=== PATIENT | male | born 1940 | race Caucasian/White ===

== ENCOUNTER 2017-08-02 09:34 | Inpatient (IN) | payer MEDICARE, BC ==
[2017-08-01 11:28] LABS: BILIRUBIN,URINE NEGATIVE (NEGATIVE); KETONES,URINE NEGATIVE (NEGATIVE); LEUKOCYTE ESTERASE ,URINE NEGATIVE (NEGATIVE); NITRITE,URINE NEGATIVE (NEGATIVE); URINE UROBILINOGEN 0.2 mg/dL (0.2 - 1)
[2017-08-01 11:28] LABS: BASOPHILS # (AUTO) 0.1 (0.0-0.1); BASOPHILS % 0.5 % (0.0-1.0); EOSINOPHILS # (AUTO) 0.1 (0.0-0.4); EOSINOPHILS % 1.5 % (0.0-6.0); HEMATOCRIT 38.1 % (38.2-49.6); HEMOGLOBIN 13.3 g/dL (14.0-18.0); LYMPHOCYTES # (AUTO) 1.2 (1.0-3.2); LYMPHOCYTES % 12.5 % (18.0-39.1); MEAN CORPUSCULAR HEMOGLOBIN 30.4 pg (28-32); MEAN CORPUSCULAR HGB CONC 34.9 g/dL (31-35); MEAN CORPUSCULAR VOLUME 87.2 fL (81-99); MONOCYTES # (AUTO) 0.5 (0.2-0.8); MONOCYTES % 4.8 % (4.4-11.3); NEUTROPHILS # (AUTO) 7.5 (2.1-6.9); NEUTROPHILS % 80.2 % (38.7-80.0); PLATELET COUNT 198 x10e3/uL (140-360); RED BLOOD COUNT 4.37 x10e6/uL (4.3-5.7); RED CELL DISTRIBUTION WIDTH 12.6 % (11.7-14.4)
[2017-08-01 11:30] LABS: CLARITY,URINE SL CLOUDY (CLEAR); COLOR,URINE YELLOW (YELLOW); PROTEIN,URINE DIPSTICK 2+ (NEGATIVE)
[2017-08-01 11:48] LABS: ANION GAP 15.4 mmol/L (8-16); CALCIUM 9.7 mg/dL (8.4-10.2); CREATININE, SERUM 1.75 mg/dL (0.72-1.25); POTASSIUM 4.4 mmol/L (3.5-5.1)
--- NOTE | 2017-08-01 18:16 | Diagnostic Imaging Report ---
PROCEDURE: X-RAY CHEST, TWO VIEWS COMPARISON: Chest x-ray 03/09/16. INDICATIONS: PRE OPERATIVE CHEST X-RAY FOR KNEE REPLACEMENT FINDINGS: LUNGS: The lungs are slightly lower compared to previous exam. There is minimal atelectasis of the right lung base. No soft tissue mass or infiltrate. Calcified granuloma in the left upper lobe is stable. PLEURA: No effusions or pneumothorax. HEART \T\ MEDIASTINUM: The heart is within normal size-limits. Coronary artery stents are stable. BONES \T\ SOFT TISSUES: Median sternotomy is well-healed. Degenerative changes of the spine are stable. No focal osseous lesions. Cholecystectomy clips are stable. CONCLUSION: Slightly lower lung volumes. No acute cardiopulmonary process. Dictated by: Haritha Hong M.D. on 08/01/2017 at 18:16 Electronically approved by: Haritha Hong M.D. on 08/01/2017 at 18:16
[~2017-08-02] VITALS: Ht 177.8 cm; Wt 97.5 kg
[~2017-08-02 09:34] MED LIST: ASPIR 8181 MG PO; ATORVASTATIN CA40 MG PO; BENAZEPRIL HCL10 MG PO; BUPROPION XL150 MG PO; CLOPIDOGREL75 MG PO; GLIMEPIRIDE4 MG PO; IRON PO; LEVEMIR100 UNIT/1 SQ; LEVOTHYROXINE75 MCG PO; LORAZEPAM1 MG PO; METOPROLOL TART50 MG PO; MULTI-VITAMIN1 EACH PO; NITROGLYCERIN PO; NITROQUICK SL; NOVOLOG MI100 UNITS/ SQ; OMEGA 3 FISH O1 EACH PO; OMEPRAZOLE20 MG PO; PEPCID AC20 MG PO; TAMSULOSIN HCL0.4 MG PO; TRILIPIX45 MG PO; VICTOZA 2-0.6 MG/0.1 SQ; VITAMIN C500 MG PO; VITAMIN D1000 UNI1 PO; ZETIA10 MG PO
--- OUTSIDE RECORDS SUMMARY | 2017-08-02 09:37 | XMS REPORT ---
Author Author [facility] Address Unknown Phone Unavailable Care Team Providers Care Patient Sitter Name Role Phone LAMBERT ORR Unavailable Unavailable Problems This patient has no known problems. Allergies, Adverse Reactions, Alerts This patient has no known allergies or adverse reactions. Medications This patient has no known medications. Results Test Description Test Time Test Comments Text Results Atomic Results Result Comments CHEST 2 VIEWS [place] [address] Patient Name: SIMONE FUNES MR #: [id number] : 1940 Age/Sex: 77/M Req #: [id number] Adm Physician: Ordered by: LAMBERT ORR MD Report #: [id number] Location: OR Room/Bed: Procedure: [id number] DX/CHEST 2 VIEWS Exam Date: 08/01/17 Exam Time: 1120 REPORT STATUS: Signed PROCEDURE: X-RAY CHEST, TWO VIEWS COMPARISON: Chest x-ray 03/09/16. INDICATIONS: PRE OPERATIVE CHEST X-RAY FOR KNEE REPLACEMENT FINDINGS: LUNGS: The lungs are slightly lower compared to previous exam. There is minimal atelectasis of the right lung base. No soft tissue mass or infiltrate. Calcified granuloma in the left upper lobe is stable. PLEURA: No effusions or pneumothorax. HEART T MEDIASTINUM: The heart is within normal size-limits. Coronary artery stents are stable. BONES T SOFT TISSUES: Median sternotomy is well-healed. Degenerative changes of the spine are stable. No focal osseous lesions. Cholecystectomy clips are stable. CONCLUSION: Slightly lower lung volumes. No acute cardiopulmonary process. Dictated by: Celena Hong M.D. on 08/01/2017 at 18:16 Electronically approved by: Celena Hong M.D. on 08/01/2017 at 18:16 Dictated By: CELENA HONG MD 15 Transcribed By: MARE on 08/01/171815 COPY TO: LAMBERT ORR MD
[2017-08-02] MEDS ORDERED: CEFAZOLIN SOD 2 GM/D5W 50ML 50 ML IV ONE (10:36)
[2017-08-02 11:11] LABS: INR 1.1; PROTHROMBIN TIME 13.4 seconds (11.9-14.5)
[2017-08-02 11:54] LABS: INR 1.09; PROTHROMBIN TIME 13.3 seconds (11.9-14.5)
[2017-08-02 11:58] LABS: PARTIAL THROMBOPLASTIN TIME 30.6 seconds (23.8-35.5)
[2017-08-02] MEDS ORDERED: BACITRACIN 50,000 UNIT VIAL ONE (13:21)
[2017-08-02] MEDS ORDERED: NALOXONE HCL INJ 0.4 MG/ML AMP IV PRN (15:30)
[2017-08-02] MEDS ORDERED: FENTANYL CITRATE/PF 100MCG/2 ML INJ ONE ×2 (15:54→17:51)
[2017-08-02] MEDS ORDERED: HYDROMORPHONE 0.2MG/ML-SOD CHL 30ML PCA SYRINGE IV ONE (16:11)
--- NOTE | 2017-08-02 16:35 | Diagnostic Imaging Report ---
PROCEDURE: X-RAY RIGHT KNEE, ONE OR TWO VIEWS COMPARISON: None. INDICATIONS:s/p knee replacement FINDINGS: See conclusion. CONCLUSION: Status post total right knee replacement with surrounding soft tissue swelling, soft tissue air and sreedhar consistent with recent surgery. No acute fractures. Hardware is intact and show satisfactory alignment. Vascular calcifications. Jay Santos M.D. Dictated by: Jay Santos M.D. on 08/02/2017 at 16:35 Electronically approved by: Jay Santos M.D. on 08/02/2017 at 16:35
[2017-08-02 17:06] VITALS: BP 131/68
[2017-08-02 17:17] VITALS: BP 131/61
[2017-08-02] MEDS ORDERED: NITROQUICK SL SCH (17:45)
[2017-08-02] MEDS ORDERED: MIDAZOLAM HCL 2 MG/2 ML VIAL ONE (17:51)
[2017-08-02] MEDS ORDERED: NITROGLYCERIN 0.4 MG SUBL SL PRN (18:15)
[2017-08-02] MEDS: ONDANSETRON HCL INJ 2 MG/ML VIAL IV PRN (18:23)
[2017-08-02] MEDS: SODIUM CHLORIDE 0.9% 1000ML 1,000 ML IV SCH (18:23)
[2017-08-02] MEDS ORDERED: LIDOCAINE HCL 2% LOCAL INJ 5 ML SDV VIAL INJ ONE (18:25)
[2017-08-02] MEDS ORDERED: DEXAMETHASONE SOD PHOS INJ 4 MG/ML VIAL ONE (18:25)
[2017-08-02] MEDS ORDERED: ACETAMINOPHEN 1000 MG/100 ML IV ONE (18:25)
[2017-08-02] MEDS ORDERED: PROPOFOL IV EMULSION 10 MG/ML 20 ML VIAL ONE (18:25)
[2017-08-02] MEDS ORDERED: SEVOFLURANE INHAL SOLN 250 ML PEN BTL ONE (18:25)
[2017-08-02] MEDS: ACETAMINOPHEN 1000 MG/100 ML IV SCH (18:25)
[2017-08-02] MEDS ORDERED: ONDANSETRON HCL INJ 2 MG/ML VIAL ONE (18:25)
[2017-08-02] MEDS ORDERED: ROPIVACAINE 0.5% 5 MG/ML 30 ML SDV ONE (18:40)
[2017-08-02 20:00] VITALS: BP 152/66
[2017-08-02] MEDS: INSULIN DETEMIR 100 UNIT/ML PEN SQ SCH (22:00)
[2017-08-02] MEDS ORDERED: CEFAZOLIN SOD 1 GM/NS 50ML 50 ML IV SCH (22:00)
[2017-08-02] MEDS: CEFAZOLIN SOD 1 GM VIAL IV SCH (22:04)
[2017-08-02] MEDS: INSULIN ASPART 70/30 100 UNITS/ML VIAL SC SCH (23:00)
[2017-08-03] VITALS (10 sets, daily range): BP systolic 126–147; BP diastolic 60–68
[2017-08-03] MEDS: ACETAMINOPHEN 1000 MG/100 ML IV SCH ×3 (00:33→11:32)
[2017-08-03] MEDS: DIPHENHYDRAMINE HCL INJ 50 MG/ML VIAL IM/IV PRN (02:15)
[2017-08-03] MEDS: SODIUM CHLORIDE 0.9% 1000ML 1,000 ML IV SCH ×3 (02:46→21:30)
[2017-08-03] MEDS: CEFAZOLIN SOD 1 GM VIAL IV SCH ×2 (05:59→14:02)
[2017-08-03] MEDS: LEVOTHYROXINE SODIUM 75 MCG TAB PO SCH (06:00)
[2017-08-03 06:51] LABS: HEMOGLOBIN 9.3 g/dL (14.0-18.0)
[2017-08-03] MEDS ORDERED: GLIMEPIRIDE 2 MG TAB PO SCH (07:30)
[2017-08-03] MEDS: HYDROMORPHONE 0.2MG/ML-SOD CHL 30ML PCA SYRINGE IV PRN (08:00)
--- NOTE | 2017-08-03 08:53 | Operative Report ---
DATE OF PROCEDURE: August 02, 2017 PREOPERATIVE DIAGNOSIS: Right knee end-stage arthritis. POSTOPERATIVE DIAGNOSIS: Right knee end-stage arthritis. PROCEDURE PERFORMED: Patient underwent a right total knee arthroplasty using the [employer] Nex[employer] knee system with a size G femoral component, a size 8 tibial component, a 17 mm tibial insert, and a 38 mm patellar button. MORTGAGE LOAN UNDERWRITER: None. ANESTHESIA: General endotracheal intubation anesthesia. IV FLUIDS: Per the anesthesia record. DESCRIPTION OF PROCEDURE: Mr. Whitney was taken to the operating room and placed in the supine position on the operating table. Following induction of general anesthesia as well as endotracheal intubation, the patient's right lower extremity was examined under anesthesia. He was found to have a mild effusion within the knee joint. The patient's knee was ligamentously stable. The patient's lower extremity was prepped and draped in standard surgical fashion. The case was begun by creating an incision along the anterior surface of the knee. This incision was carried through the skin and subcutaneous tissues to the level of the extensor mechanism. The extensor mechanism was then incised along the medial border of the tendon and patella to the level of the tibial tubercle. The patella was everted, and the fat pad was resected. Osteophytes were removed from the femoral and tibial bone surfaces as well as from the periphery of the patella. The patella was then sized for later reaming. The knee was placed in flexion, and the anterior horns of the medial and lateral meniscus were resected. The anterior and posterior cruciate ligaments were also resected at this time. The 5-in-1 cutting block was then affixed to the femur, and the femoral cuts were performed. The intercondylar notch cutting block was affixed to the femur, and the intercondylar cut was performed. The finishing block was placed in the femur, and the posterior chamfer cut was completed. Attention was then turned to the tibia. The external tibial alignment guide was affixed to the tibia and adjusted appropriately. The tibial cut was performed. The keel cutting device was then affixed to the proximal tibia, and the keel cut was performed. Trial femoral and tibial components were inserted in the knee joint, and the soft tissues were balanced. A 17 mm tibial insert was placed within the tibial tray, and the knee was reduced and placed through motion and found to be stable. The patella was then reamed, and a trial patellar button was affixed to the undersurface of the patella. The patellofemoral joint was placed through motion and found to be stable. The trial components were removed. Cement was mixed on the back table. The femoral, tibial and patellar implants were cemented into place. The tourniquet was deflated, and hemostasis was obtained. The wound was copiously irrigated. The quadriceps tendon was repaired with nonabsorbable sutures. The remaining soft tissues were closed in a multilayer fashion Sterile dressings were applied. The patient was then awakened and taken to the postanesthesia care unit in stable condition. Job#: [id number]
[2017-08-03] MEDS: FENOFIBRATE 48 MG TAB PO SCH (09:00)
[2017-08-03] MEDS ORDERED: NON-FORMULARY MEDICATION (Atorvastatin Calcium 40 MG) PO SCH (09:00)
[2017-08-03] MEDS: METOPROLOL TARTRATE 50 MG TAB PO SCH (09:00)
[2017-08-03] MEDS ORDERED: NON-FORMULARY MEDICATION (Glimepiride 4 MG) PO SCH (09:00)
[2017-08-03] MEDS: INSULIN ASPART 70/30 100 UNITS/ML VIAL SC SCH ×2 (09:00→17:00)
[2017-08-03] MEDS ORDERED: INSULIN ASPART 70/30 100 UNITS/ML VIAL SC SCH (09:00)
[2017-08-03] MEDS ORDERED: TAMSULOSIN HCL 0.4 MG CAP PO SCH (09:00)
[2017-08-03] MEDS: NITROGLYCERIN 6.5 MG PO SCH ×2 (09:00→17:24)
[2017-08-03] MEDS: LIRAGLUTIDE 1.2 MG SQ SCH (09:00)
[2017-08-03] MEDS: BENAZEPRIL HCL 10 MG TAB PO SCH (09:00)
[2017-08-03] MEDS ORDERED: INSULIN DETEMIR 100 UNIT/ML PEN SQ SCH (09:00)
[2017-08-03] MEDS ORDERED: ASPIRIN 81 MG CHEW TAB PO SCH (09:00)
[2017-08-03] MEDS: IRON 27 MG PO SCH (09:00)
[2017-08-03] MEDS ORDERED: FENOFIBRIC ACID 45 MG PO SCH (09:00)
[2017-08-03] MEDS: CLOPIDOGREL BISULFATE 75 MG TAB PO SCH (09:00)
[2017-08-03] MEDS: FAMOTIDINE 20 MG TAB PO SCH (09:00)
[2017-08-03] MEDS: CHOLECALCIFEROL 1,000 UNIT TAB PO SCH ×2 (09:00→17:24)
[2017-08-03] MEDS: ASCORBIC ACID 500 MG TAB PO SCH (09:00)
[2017-08-03] MEDS ORDERED: INSULIN DETEMIR 80 UNIT SQ SCH (09:00)
[2017-08-03] MEDS: OMEGA 3 POLYUNSAT FATTY ACIDS 1000 MG SOFTGEL PO SCH ×2 (09:00→17:24)
[2017-08-03] MEDS: EZETIMIBE 10 MG TAB PO SCH (09:00)
[2017-08-03] MEDS ORDERED: NON-FORMULARY MEDICATION (Ascorbic Acid (Vitamin C) 500 MG) PO SCH (09:00)
[2017-08-03] MEDS: GLIMEPIRIDE 2 MG TAB PO SCH ×2 (09:40→16:27)
[2017-08-03] MEDS: RIVAROXABAN 10 MG TABLET PO SCH (17:24)
[2017-08-03] MEDS ORDERED: KETOROLAC TROMETHAMINE 10 MG TAB PO PRN (18:15)
[2017-08-03] MEDS ORDERED: KETOROLAC TROMETHAMINE 30 MG/ML VIAL IV ONE (18:35)
[2017-08-03] MEDS: ASPIRIN 81 MG CHEW TAB PO SCH (21:00)
[2017-08-03] MEDS: ATORVASTATIN 40 MG TAB PO SCH (21:00)
[2017-08-03] MEDS: TAMSULOSIN HCL 0.4 MG CAP PO SCH (21:00)
[2017-08-03] MEDS: INSULIN DETEMIR 100 UNIT/ML PEN SQ SCH (21:00)
[2017-08-04] VITALS (8 sets, daily range): BP systolic 137–179; BP diastolic 63–76
[2017-08-04] MEDS: HYDROMORPHONE 0.2MG/ML-SOD CHL 30ML PCA SYRINGE IV PRN (04:38)
[2017-08-04] MEDS: LEVOTHYROXINE SODIUM 75 MCG TAB PO SCH (06:20)
[2017-08-04 06:54] LABS: HEMATOCRIT 24.9 % (38.2-49.6); HEMOGLOBIN 8.7 g/dL (14.0-18.0)
[2017-08-04] MEDS: LORAZEPAM 1 MG TAB PO PRN (07:20)
[2017-08-04] MEDS: SODIUM CHLORIDE 0.9% 1000ML 1,000 ML IV SCH ×2 (07:39→16:51)
[2017-08-04] MEDS: FAMOTIDINE 20 MG TAB PO SCH (08:59)
[2017-08-04] MEDS: LIRAGLUTIDE 1.2 MG SQ SCH (08:59)
[2017-08-04] MEDS: FENOFIBRATE 48 MG TAB PO SCH (08:59)
[2017-08-04] MEDS: METOPROLOL TARTRATE 50 MG TAB PO SCH (08:59)
[2017-08-04] MEDS: CLOPIDOGREL BISULFATE 75 MG TAB PO SCH (08:59)
[2017-08-04] MEDS: OMEGA 3 POLYUNSAT FATTY ACIDS 1000 MG SOFTGEL PO SCH ×2 (08:59→17:29)
[2017-08-04] MEDS: EZETIMIBE 10 MG TAB PO SCH (08:59)
[2017-08-04] MEDS: BENAZEPRIL HCL 10 MG TAB PO SCH (08:59)
[2017-08-04] MEDS: ASCORBIC ACID 500 MG TAB PO SCH (08:59)
[2017-08-04] MEDS: CHOLECALCIFEROL 1,000 UNIT TAB PO SCH ×2 (08:59→17:29)
[2017-08-04] MEDS: NITROGLYCERIN 6.5 MG PO SCH ×2 (09:00→17:29)
[2017-08-04] MEDS: IRON 27 MG PO SCH (09:00)
[2017-08-04] MEDS: INSULIN ASPART 70/30 100 UNITS/ML VIAL SC SCH ×2 (09:00→17:45)
[2017-08-04] MEDS: GLIMEPIRIDE 2 MG TAB PO SCH ×2 (09:00→17:29)
[2017-08-04] MEDS ORDERED: HYDROCODONE/APAP 7.5MG-325MG 1 EA TAB PO PRN (11:45)
[2017-08-04] MEDS: DIPHENHYDRAMINE HCL INJ 50 MG/ML VIAL IM/IV PRN (12:19)
[2017-08-04] MEDS: HYDROCODONE/APAP 5MG-325MG TAB PO PRN ×3 (15:17→22:43)
[2017-08-04] MEDS: RIVAROXABAN 10 MG TABLET PO SCH (17:29)
[2017-08-04] MEDS: ASPIRIN 81 MG CHEW TAB PO SCH (20:53)
[2017-08-04] MEDS: TAMSULOSIN HCL 0.4 MG CAP PO SCH (20:53)
[2017-08-04] MEDS: ATORVASTATIN 40 MG TAB PO SCH (20:53)
[2017-08-04] MEDS: INSULIN DETEMIR 100 UNIT/ML PEN SQ SCH (21:53)
[2017-08-05 04:33] VITALS: BP 132/61
[2017-08-05] MEDS: LEVOTHYROXINE SODIUM 75 MCG TAB PO SCH (05:20)
[2017-08-05] MEDS: HYDROCODONE/APAP 5MG-325MG TAB PO PRN ×4 (05:20→21:05)
[2017-08-05 06:40] LABS: HEMATOCRIT 23.4 % (38.2-49.6)
[2017-08-05 08:56] VITALS: BP 164/71
[2017-08-05] MEDS: FAMOTIDINE 20 MG TAB PO SCH (09:00)
[2017-08-05] MEDS: CHOLECALCIFEROL 1,000 UNIT TAB PO SCH ×2 (09:00→17:00)
[2017-08-05] MEDS: METOPROLOL TARTRATE 50 MG TAB PO SCH (09:00)
[2017-08-05] MEDS: LIRAGLUTIDE 1.2 MG SQ SCH (09:00)
[2017-08-05] MEDS: FENOFIBRATE 48 MG TAB PO SCH (09:00)
[2017-08-05] MEDS: CLOPIDOGREL BISULFATE 75 MG TAB PO SCH (09:00)
[2017-08-05] MEDS: NITROGLYCERIN 6.5 MG PO SCH ×2 (09:00→17:00)
[2017-08-05] MEDS: OMEGA 3 POLYUNSAT FATTY ACIDS 1000 MG SOFTGEL PO SCH ×2 (09:00→17:00)
[2017-08-05] MEDS: EZETIMIBE 10 MG TAB PO SCH (09:00)
[2017-08-05] MEDS: ASCORBIC ACID 500 MG TAB PO SCH (09:00)
[2017-08-05] MEDS: IRON 27 MG PO SCH (09:00)
[2017-08-05] MEDS: BENAZEPRIL HCL 10 MG TAB PO SCH (09:00)
[2017-08-05 09:43] LABS: BASOPHILS % 0.3 % (0.0-1.0); EOSINOPHILS # (AUTO) 0.3 (0.0-0.4); EOSINOPHILS % 2.7 % (0.0-6.0); HEMATOCRIT 23.6 % (38.2-49.6); LYMPHOCYTES # (AUTO) 1.5 (1.0-3.2); LYMPHOCYTES % 15.2 % (18.0-39.1); MEAN CORPUSCULAR HGB CONC 33.9 g/dL (31-35); MEAN CORPUSCULAR VOLUME 88.4 fL (81-99); MONOCYTES # (AUTO) 0.9 (0.2-0.8); NEUTROPHILS # (AUTO) 6.9 (2.1-6.9); NEUTROPHILS % 72.2 % (38.7-80.0); PLATELET COUNT 137 x10e3/uL (140-360); RED BLOOD COUNT 2.67 x10e6/uL (4.3-5.7); RED CELL DISTRIBUTION WIDTH 13.2 % (11.7-14.4)
[2017-08-05] MEDS: SERTRALINE HCL 50 MG TAB PO SCH (09:45)
[2017-08-05] MEDS: ONDANSETRON HCL INJ 2 MG/ML VIAL IV PRN (09:47)
[2017-08-05] MEDS: LORAZEPAM 1 MG TAB PO PRN (09:47)
[2017-08-05 09:54] LABS: ALBUMIN 2.8 g/dL (3.5-5.0); ALBUMIN/GLOBULIN RATIO 0.9 (0.8-2.0); ANION GAP 11.2 mmol/L (8-16); CALCIUM 9.2 mg/dL (8.4-10.2); CREATININE, SERUM 1.77 mg/dL (0.72-1.25); POTASSIUM 4.2 mmol/L (3.5-5.1)
[2017-08-05 11:58] VITALS: BP 160/67
[2017-08-05 16:00] VITALS: BP 157/72
[2017-08-05] MEDS: RIVAROXABAN 10 MG TABLET PO SCH (17:00)
[2017-08-05 19:45] VITALS: BP 163/72
[2017-08-05] MEDS: ATORVASTATIN 40 MG TAB PO SCH (21:15)
[2017-08-05] MEDS: ASPIRIN 81 MG CHEW TAB PO SCH (21:15)
[2017-08-05] MEDS: TAMSULOSIN HCL 0.4 MG CAP PO SCH (21:15)
[2017-08-05] MEDS: INSULIN DETEMIR 100 UNIT/ML PEN SQ SCH (21:30)
[2017-08-05 23:10] VITALS: BP 148/65
[2017-08-06] VITALS (7 sets, daily range): BP systolic 133–166; BP diastolic 60–77
[2017-08-06 07:07] LABS: ALBUMIN 2.7 g/dL (3.5-5.0); ALBUMIN/GLOBULIN RATIO 0.8 (0.8-2.0); ANION GAP 12.3 mmol/L (8-16); CALCIUM 9.5 mg/dL (8.4-10.2); CREATININE, SERUM 1.6 mg/dL (0.72-1.25); POTASSIUM 4.3 mmol/L (3.5-5.1)
[2017-08-06] MEDS: LEVOTHYROXINE SODIUM 75 MCG TAB PO SCH (07:27)
[2017-08-06] MEDS: HYDROCODONE/APAP 5MG-325MG TAB PO PRN ×4 (08:10→23:25)
[2017-08-06] MEDS: BENAZEPRIL HCL 10 MG TAB PO SCH (09:00)
[2017-08-06] MEDS: IRON 27 MG PO SCH (09:00)
[2017-08-06] MEDS: ASCORBIC ACID 500 MG TAB PO SCH (09:00)
[2017-08-06] MEDS: OMEGA 3 POLYUNSAT FATTY ACIDS 1000 MG SOFTGEL PO SCH ×2 (09:00→16:34)
[2017-08-06] MEDS: METOPROLOL TARTRATE 50 MG TAB PO SCH (09:00)
[2017-08-06] MEDS: CLOPIDOGREL BISULFATE 75 MG TAB PO SCH (09:00)
[2017-08-06] MEDS: SERTRALINE HCL 50 MG TAB PO SCH (09:00)
[2017-08-06] MEDS: NITROGLYCERIN 6.5 MG PO SCH ×2 (09:00→16:34)
[2017-08-06] MEDS: EZETIMIBE 10 MG TAB PO SCH (09:00)
[2017-08-06] MEDS: CHOLECALCIFEROL 1,000 UNIT TAB PO SCH ×2 (09:00→16:34)
[2017-08-06] MEDS: LIRAGLUTIDE 1.2 MG SQ SCH (09:00)
[2017-08-06] MEDS: FENOFIBRATE 48 MG TAB PO SCH (09:00)
[2017-08-06] MEDS: FAMOTIDINE 20 MG TAB PO SCH (09:00)
[2017-08-06 09:31] LABS: BASOPHILS % 0.3 % (0.0-1.0); EOSINOPHILS # (AUTO) 0.3 (0.0-0.4); EOSINOPHILS % 2.7 % (0.0-6.0); HEMOGLOBIN 9.6 g/dL (14.0-18.0); LYMPHOCYTES # (AUTO) 1.1 (1.0-3.2); LYMPHOCYTES % 11.1 % (18.0-39.1); MEAN CORPUSCULAR HEMOGLOBIN 30.3 pg (28-32); MEAN CORPUSCULAR HGB CONC 35.6 g/dL (31-35); MEAN CORPUSCULAR VOLUME 85.2 fL (81-99); MONOCYTES % 9.3 % (4.4-11.3); NEUTROPHILS # (AUTO) 7.7 (2.1-6.9); NEUTROPHILS % 75.8 % (38.7-80.0); PLATELET COUNT 161 x10e3/uL (140-360); RED BLOOD COUNT 3.17 x10e6/uL (4.3-5.7); RED CELL DISTRIBUTION WIDTH 13.2 % (11.7-14.4)
[2017-08-06] MEDS: RIVAROXABAN 10 MG TABLET PO SCH (16:34)
[2017-08-06] MEDS: ATORVASTATIN 40 MG TAB PO SCH (20:57)
[2017-08-06] MEDS: TAMSULOSIN HCL 0.4 MG CAP PO SCH (20:57)
[2017-08-06] MEDS: ASPIRIN 81 MG CHEW TAB PO SCH (20:57)
[2017-08-06] MEDS: INSULIN DETEMIR 100 UNIT/ML PEN SQ SCH (20:58)
[2017-08-07] VITALS: BP 148/66
[2017-08-07 04:35] VITALS: BP 144/65
[2017-08-07] MEDS: LEVOTHYROXINE SODIUM 75 MCG TAB PO SCH (06:15)
[2017-08-07 08:00] VITALS: BP 122/57
[2017-08-07] MEDS: SERTRALINE HCL 50 MG TAB PO SCH (08:14)
[2017-08-07] MEDS: CLOPIDOGREL BISULFATE 75 MG TAB PO SCH (08:14)
[2017-08-07] MEDS: IRON 27 MG PO SCH (08:14)
[2017-08-07] MEDS: METOPROLOL TARTRATE 50 MG TAB PO SCH (08:14)
[2017-08-07] MEDS: ASCORBIC ACID 500 MG TAB PO SCH (08:14)
[2017-08-07] MEDS: OMEGA 3 POLYUNSAT FATTY ACIDS 1000 MG SOFTGEL PO SCH (08:14)
[2017-08-07] MEDS: FAMOTIDINE 20 MG TAB PO SCH (08:14)
[2017-08-07] MEDS: BENAZEPRIL HCL 10 MG TAB PO SCH (08:14)
[2017-08-07] MEDS: CHOLECALCIFEROL 1,000 UNIT TAB PO SCH (08:14)
[2017-08-07] MEDS: FENOFIBRATE 48 MG TAB PO SCH (08:14)
[2017-08-07] MEDS: EZETIMIBE 10 MG TAB PO SCH (08:14)
[2017-08-07] MEDS: NITROGLYCERIN 6.5 MG PO SCH (08:15)
[2017-08-07] MEDS: LIRAGLUTIDE 1.2 MG SQ SCH (08:15)
[2017-08-07] MEDS: HYDROCODONE/APAP 5MG-325MG TAB PO PRN ×3 (08:15→16:15)
[2017-08-07] MEDS ORDERED: DEXTROSE 50% SYRINGE 50 ML IV PRN (13:15)
[2017-08-07] MEDS ORDERED: INSULIN REGULAR, HUMAN 100 UNIT/1 ML 3ML VIAL SQ SCH (16:30)
--- NOTE | 2017-08-07 22:51 | Discharge Summary ---
ADMISSION DIAGNOSIS: End-stage arthritis, right knee. DISCHARGE DIAGNOSIS: End-stage arthritis, right knee. OPERATION/PROCEDURE PERFORMED: Patient underwent a right total knee arthroplasty on the July. CONSULTATIONS: With the physical therapy department as well as Dr. Multani with primary care. BRIEF DESCRIPTION OF PATIENT'S HOSPITAL STAY: Mr. Whitney was admitted to the hospital on the July and underwent an uncomplicated right total knee arthroplasty. He was returned to the floor following his surgery. His initial postoperative pain was controlled well by intravenous followed by oral analgesics. He tolerated regular diet during his hospital stay. He was mobilized using physical therapy, weightbearing to tolerance in the right lower extremity. He was found to have a low hemogram during his postoperative stay and therefore underwent a transfusion of 2 units of packed red blood cells. He responded well to the transfusion and continued to mobilize with therapy. He did not reach the goals of the therapist and was therefore deemed a candidate for discharge to a rehab-type facility. He remained medially stable during his hospital stay. He was discharged to the rehab facility once his insurance care provided approval. He was stable at the time of his discharge. DISCHARGE INSTRUCTIONS: He will be discharged to rehab facility. He would continue all of his medications as well as DVT prophylaxis with his transfer to the rehab facility. He will continue his diet. He would follow with Dr. Orr in 10 to 14 days. He would contact Dr. Orr office with fevers greater than 101.5 that were sustained or excessive drainage from his wounds or change in his level of discomfort. LAMBERT ORR MD Job#: [id number]
== END 2017-08-07 16:33 | DRG 470 ==
LOC: OR 09:34 → MED/SURG 16:20 → OBSVTOIN 08-04 14:25
PROVIDERS: ADMIT Specialist; ATTEND Specialist
PROC: 0SRC0J9 Replacement of Right Knee Joint with Synthetic Substitute, Cemented, Open Approach (ICD-10-PCS; principal; 2017-08-02 12:00)
PROC: 30233N1 Transfusion of Nonautologous Red Blood Cells into Peripheral Vein, Percutaneous Approach (ICD-10-PCS; 2017-08-05)
DX: M17.11 Unilateral primary osteoarthritis, right knee (principal); E11.22 Type 2 diabetes mellitus with diabetic chronic kidney disease; E11.649 Type 2 diabetes mellitus with hypoglycemia without coma; Z79.4 Long term (current) use of insulin; I12.9 Hypertensive chronic kidney disease with stage 1 through stage 4 chronic kidney disease, or unspecified chronic kidney disease; N18.3 Chronic kidney disease, stage 3 (moderate); I25.10 Atherosclerotic heart disease of native coronary artery without angina pectoris; D64.9 Anemia, unspecified; F32.9 Major depressive disorder, single episode, unspecified; Z79.02 Long term (current) use of antithrombotics/antiplatelets; I69.319 Unspecified symptoms and signs involving cognitive functions following cerebral infarction
CPT/HCPCS: 36415; 71046; 80048; 80053; 81003; 82948; 85014; 85018; 85025; 85610; 85730; 86850; 86900; 86920; 93005; 97139; C1713; C1776; G0378; J0690; J1100; J1200; J1815; J1885; J2001; J2250; J2405; J2795; J7030; P9016